=== PATIENT | female | born 1940 | race Caucasian/White ===

== ENCOUNTER 2024-12-18 05:42 | Day surgery (SDC) | payer MEDICARE ==
[2024-12-17 14:36] VITALS: BMI 25.8
[~2024-12-18 05:42] MED LIST: Dexamethasone 0.7 MG IMPLANT IO SCH; EPINEPHrine 0.3 MG in Ophthalmic Irrigation Solution 500 ML IRR SCH
[2024-12-18] MEDS ORDERED: Cyclopentolate 1% Opth Drop 2 ML BOT ONE (06:07)
[2024-12-18] MEDS ORDERED: Lidocaine 1% PF 5 ML VIAL ONE ×2 (06:40→07:10)
[2024-12-18] MEDS ORDERED: Maxitrol 0.1% Opth Oint 3.5 GM TUBE ONE (07:10)
[2024-12-18] MEDS ORDERED: Lidocaine 4% PF 5 ML AMP ONE (07:10)
[2024-12-18] MEDS ORDERED: PROPOFOL 200 MG/20 ML VIAL ONE (07:10)
[2024-12-18] MEDS ORDERED: CEFAZOLIN 1 GM VIAL ONE (07:10)
[2024-12-18] MEDS ORDERED: Ondansetron PF 4 MG/2 ML Vial ONE ×2 (07:15)
== END 2024-12-18 08:15 | disposition home or self-care (01) ==
LOC: EDSEX → SDC 05:42
PROVIDERS: ATTEND Ophthalmology Retina Specialist
PROC: 08B43ZZ Excision of Right Vitreous, Percutaneous Approach (ICD-10-PCS; principal; 2024-12-18)
DX: H43.311 Vitreous membranes and strands, right eye (principal); I10 Essential (primary) hypertension; Z88.0 Allergy status to penicillin
CPT/HCPCS: 67041; 93005; J0166; J0690; J2405; J2704; J3010; J3490; J7312; 93010

== ENCOUNTER 2025-01-22 05:55 | Day surgery (SDC) | payer MEDICARE ==
[2025-01-21 12:44] VITALS: BMI 25.0
[~2025-01-22 05:55] MED LIST changes: +Dexamethasone 0.7 MG IMPLANT FS SCH; -Dexamethasone 0.7 MG IMPLANT IO SCH
[2025-01-22] MEDS ORDERED: Cyclopentolate 1% Opth Drop 2 ML BOT ONE (06:06)
[2025-01-22] MEDS ORDERED: Lidocaine 1% PF 5 ML VIAL ONE ×2 (06:42→07:05)
[2025-01-22] MEDS ORDERED: PROPOFOL 20 ML ONE (06:42)
[2025-01-22 06:44] LABS: #Basophils 0.06 10x3/uL (0.0-0.2); #Eosinophils 0.21 10x3/uL (0.0-0.7); #Monocytes 0.66 10x3/uL (0.11-0.59); #Neutrophils 2.82 10x3/uL (1.40-6.50); %Basophils 1.2 % (0.0-1.0); %Eosinophils 4.1 % (0.0-10.0); %Lymphocytes 27.4 % (21.0-51.0); %Monocytes 12.7 % (0.0-10.0); %Neutrophils 54.4 % (42.0-75.0); Hematocrit 33.5 % (36.0-47.0); Hemoglobin 10.0 g/dL (12.0-16.0); Mean Corpuscular Hemoglobin 25.6 pg (27.0-31.0); Mean Corpuscular Volume 85.9 fL (78.0-98.0); Platelet Count 258 10x3/uL (130-400); Red Blood Cell (RBC) Count 3.90 mill/uL (4.20-5.40); White Blood Cell (WBC) Count 5.18 10x3/uL (4.8-10.8)
[2025-01-22 07:00] LABS: Anion Gap 11 mmol/L (10-20); BUN (Urea Nitrogen) 26 mg/dL (9.8-20.1); Calc. Creatinine Clearance 24 mL/min (70-130); Calcium 9.2 mg/dL (7.8-10.44); Carbon Dioxide 25 mmol/L (23-31); Chloride 110 mmol/L (98-107); Glucose 97 mg/dL (83-110); Potassium 4.4 mmol/L (3.5-5.1); Sodium 142 mmol/L (136-145)
[2025-01-22] MEDS ORDERED: CEFAZOLIN 1 GM VIAL ONE (07:05)
[2025-01-22] MEDS ORDERED: Lidocaine 4% PF 5 ML AMP ONE (07:05)
[2025-01-22] MEDS ORDERED: Maxitrol 0.1% Opth Oint 3.5 GM TUBE ONE (07:05)
== END 2025-01-22 08:10 | disposition home or self-care (01) ==
LOC: SDC 05:55
PROVIDERS: ATTEND Ophthalmology Retina Specialist
PROC: 08T53ZZ Resection of Left Vitreous, Percutaneous Approach (ICD-10-PCS; principal; 2025-01-22)
PROC: 08NF3ZZ Release Left Retina, Percutaneous Approach (ICD-10-PCS; 2025-01-22)
DX: H43.312 Vitreous membranes and strands, left eye (principal); I10 Essential (primary) hypertension; Z96.643 Presence of artificial hip joint, bilateral; Z88.0 Allergy status to penicillin
CPT/HCPCS: 67041; 80048; 85025; J0166; J0690; J1100; J2003; J2250; J2704; J3010; J3490; J7312; 36415